=== PATIENT | male | born 1945 | race Caucasian/White ===

== ENCOUNTER → 2016-10-13 | Outpatient (CLI) | payer MEDICARE, OTHER ==
[~2016-10-13] MED LIST: AMLODIPINE BESYL5 MG PO; ATORVASTATIN CA10 MG PO; BAYER ASPIRIN325 M1 PO; CHLOR-TRIMETON PO; COATED ASPIRIN325 M1 PO; DIPYRIDAMOLE50 MG PO; GABAPENTIN300 MG PO; LIPITOR40 MG PO; METOPROLOL TART25 MG PO; NEURONTIN300 MG PO; PERSANTINE50 MG PO
--- NOTE | ~2016-10-13 | CR71 ---
[facility] A Service of [facility] & [facility] RADIOLOGY TEXT RESULTS PATIENT: JAMILA WANG LOCATION: [facility] : 43 UNIT #: [id number] AGE: [address]: Nathaniel Bermeo MD SEX: M ORDER DR: [id number] [facility] [address], [place] [address] [id number] O MR#: [id number] Acc #: [id number] NAME: JAMILA WANG. : 1945 SEX: M STUDY DATE/TIME: 10/13/2016 13:09 UNIT: [facility] ROOM: STUDY DESCRIPTION: CR Chest Single View Attending Physician: Nathaniel Randhawa M.D. Ordering Physician: Mikey Latif M.D. Primary Care Physician: Booker Martell Jr., M.D. MEDICAL IMAGING REPORT This report is preliminary unless electronic signature is present EXAM Portable chest 1-view 10/13/2016 HISTORY Status post right lung biopsy. FINDINGS Single chest radiograph status post right lung biopsy shows no evidence of postbiopsy pneumothorax. Dictated by... Mikey Latif M.D. THIS IS AN ELECTRONICALLY VERIFIED REPORT Mikey Latif M.D. at 10/17/2016 11:22 AM ALEE/patricia TD: 10/13/2016 18:39 JOB #: [id number] MEDICAL IMAGING REPORT Page 1 of 1 COPY
--- NOTE | ~2016-10-13 | XA54 ---
[facility] A Service of [facility] RADIOLOGY TEXT RESULTS PATIENT: JAMILA WANG LOCATION: [facility] : 43 UNIT #: [id number] AGE: [address]: Nathaniel Bermeo MD SEX: M ORDER DR: [id number] [address] [place], [place] [address] [id number] O MR#: [id number] Acc #: [id number] NAME: JAMILA WANG. : 1945 SEX: M STUDY DATE/TIME: 10/13/2016 10:52 UNIT: [facility] ROOM: STUDY DESCRIPTION: XA BX Lung/Mediastinum Attending Physician: Nathaniel Randhawa M.D. Ordering Physician: Nathaniel Randhawa M.D. Primary Care Physician: Booker Martell Jr., M.D. MEDICAL IMAGING REPORT This report is preliminary unless electronic signature is present EXAM Fluoroscopically guided lung biopsy HISTORY Right lower lobe lung mass. Suspected bronchogenic carcinoma. Biopsy confirmation requested. PROCEDURE Informed consent was obtained. Fentanyl and Versed were administered for IV conscious sedation with hemodynamic monitoring provided by the nursing staff throughout the procedure, total sedation time 15 minutes. After a skin site was selected with fluoroscopic guidance, it was sterilely prepped and draped and locally anesthetized. An Inrad needle gun was used to obtain core specimens from a right lower lobe lung mass. There were no complications and the patient tolerated the procedure well. Total fluoro time 1.3 minutes, with 5 spot images obtained. IMPRESSION Successful fluoroscopically guided core biopsy of a right lower lobe lung mass without complication. Dictated by... Mikey Latfi M.D. THIS IS AN ELECTRONICALLY VERIFIED REPORT Mikey Latif M.D. at 10/14/2016 2:58 PM ALEE/mena TD: 10/14/2016 08:13 JOB #: [id number] [facility] A Service of [facility] RADIOLOGY TEXT RESULTS PATIENT: JAMILA WANG LOCATION: [facility] : 43 UNIT #: [id number] AGE: [address]: Nathaniel Bermeo MD SEX: M ORDER DR: MEDICAL IMAGING REPORT Page 1 of 1 COPY
[2016-10-13 08:56] LABS: HEMATOCRIT 32.9 % (38.0-50.0); HEMOGLOBIN 10.5 gm/dL (13.0-16.0); MEAN CELL VOLUME 84.8 FL (83-96); MEAN CORPUSCULAR HEMOGLOBIN 27.1 PG (28-34); MEAN PLATELET VOLUME 5.7 FL (6.5-11.5); RED BLOOD COUNT 3.88 X10e (3.90-5.60); RED CELL DISTRIBUTION WIDTH 16.7 % (11.0-15.5); WHITE BLOOD COUNT 10.9 X10e3 (4.0-10.5)
[2016-10-13 09:10] LABS: INR 1.1; PARTIAL THROMBOPLASTIN TIME 32.7 SECONDS (23.5-31.3); PROTHROMBIN TIME (PATIENT) 11.2 SECONDS (9.6-11.5)
== END | disposition home or self-care (01) ==
LOC: CIVR 08:15
PROVIDERS: Surgery
PROC: 0BBF3ZX Excision of Right Lower Lung Lobe, Percutaneous Approach, Diagnostic (ICD-10-PCS; principal; 2016-10-13)
DX: C34.31 Malignant neoplasm of lower lobe, right bronchus or lung (principal); I10 Essential (primary) hypertension; E78.5 Hyperlipidemia, unspecified; I25.10 Atherosclerotic heart disease of native coronary artery without angina pectoris; Z95.1 Presence of aortocoronary bypass graft; I73.9 Peripheral vascular disease, unspecified; A69.20 Lyme disease, unspecified; Z87.891 Personal history of nicotine dependence; Z72.89 Other problems related to lifestyle
CPT/HCPCS: 36415; 71010; 77002; 85027; 85610; 85730; 88305; 88341; 88342; J2250; J3010